=== PATIENT | female | born 1955 | race African-American/Black ===

== ENCOUNTER 2016-11-07 11:06 | Day surgery (SDC) | payer OTHER ==
[2016-11-03 14:31] LABS: BASOPHILS 0.5 %; BASOPHILS ABSOLUTE 0.02 10/3/uL (0.0-0.16); EOSINOPHILS 1.6 %; EOSINOPHILS ABSOLUTE 0.06 10/3/uL (0.0-0.53); HEMATOCRIT 38.4 % (36.0-48.0); HEMOGLOBIN 13.5 g/dL (12.0-16.0); IMMATURE GRANULOCYTES 0.3 %; IMMATURE GRANULOCYTES ABSOLUTE 0.01 10/3/uL (0.0-0.11); LYMPHOCYTES 38.5 %; LYMPHOCYTES ABSOLUTE 1.48 10/3/uL (0.67-4.30); MEAN CORPUS HGB CONC 35.2 g/dL (32.0-36.0); MEAN CORPUSCULAR HEMOGLOB 30.3 pg (26.0-34.0); MEAN PLATELET VOLUME 10.9 fL (9.2-13.0); MONOCYTES 7.3 %; MONOCYTES ABSOLUTE 0.28 10/3/uL (0.21-1.20); NEUTROPHILS 51.8 %; NEUTROPHILS ABSOLUTE 1.99 10/3/uL (2.02-8.40); PLATELET COUNT 176 10/3/uL (150-400); RBC DISTRIBUTION WIDTH 14.2 % (12.0-16.0); RED CELL COUNT 4.46 10/6/uL (4.0-5.6); WHITE BLOOD CELLS 3.8 10/3/uL (4.5-10.5)
[2016-11-03 14:37] LABS: MANUAL DIFF NO %; MEAN CORPUSCULAR VOLUME 86.1 fL (80-100)
[2016-11-03 14:44] LABS: BUN (BLOOD UREA NITROGEN) 7 MG/DL (6-23); CALCIUM, SERUM 9.2 MG/DL (8.5-10.4); CHLORIDE, SERUM 110 MMOL/L (96-112); CO2 (CARBON DIOXIDE) 27 MMOL/L (24-34); CREATININE 0.85 MG/DL (0.55-1.02); GFR AFRICAN AMERICAN 87 ML/MIN (>=60); GFR NON AFRICAN AMERICAN 75 ML/MIN (>=60); GLUCOSE, SERUM 100 MG/DL (60-99); POTASSIUM, SERUM 3.9 MMOL/L (3.5-5.3); SODIUM, SERUM 145 MMOL/L (135-148)
[2016-11-03 16:12] LABS: ASCORBIC ACID (UR NOT ORDER) NEG (NEG); BILIRUBIN, URINE NEGATIVE (NEG); KETONE, URINE NEGATIVE (NEG); LEUKOCYTE ESTERASE(NOT OR NEG (NEG); WBC (NOT ORDERED) (RFLEX) 4 (0-5)
--- NOTE | ~2016-11-07 | OP ---
Record Of Operation [facility] [address] [place]. [address] NAME: DARIO ANGLIN : 57 STATUS : [facility]#: [id number] AGE: 60 ADM/REG DATE : 11/07/16 MR#: [id number] REPORT SERV DATE: 11/08/16 DICTATED BY: MARCIE SCHUMACHER III DATE: 11/07/16 REPORT STATUS : Draft TRANSCRIBED BY: ELEANOR DATE: 11/07/16 DATE OF PROCEDURE: 11/07/2016 PREOPERATIVE DIAGNOSIS: Acquired deformity, second digit, left foot. POSTOPERATIVE DIAGNOSIS: Acquired deformity, second digit, left foot. PROCEDURE: Partial amputation of second digit at the proximal interphalangeal joint, left foot. SURGEON: Marcie Schumacher D.P.M. ANESTHESIA: General LMA. HEMOSTASIS: Left pneumatic ankle tourniquet at 250 mmHg for 11 minutes. ESTIMATED BLOOD LOSS: Minimal. MATERIALS: 3-0 Prolene. INJECTABLES: 10 mL of 0.5% Marcaine plain. SPECIMEN: Distal second digit, left foot. COMPLICATIONS: None. PROCEDURE NOTE: The patient was identified in the preoperative holding area and the appropriate limb for surgery was identified and clearly marked. The patient's vital signs were taken at this time and were noted to be stable. The patient was then brought into the operating room and placed on the operating room table in the supine position. The patient was then administered general anesthesia via LMA. A well-padded ankle tourniquet was then placed about the patient's left ankle. The left foot was then scrubbed, prepped, and draped in the usual sterile manner. An Esmarch bandage was then used to exsanguinate the patient's left foot and the pneumatic ankle tourniquet was then inflated to a pressure of 250 mmHg at this time. Attention was then directed to the distal aspect of the second digit where a deformity was present at the distal aspect of the digit. An incision was made over the dorsal aspect of the proximal interphalangeal joint with a flap being left plantarly. The digit was then disarticulated at the proximal interphalangeal joint. The wound was irrigated with normal saline, the plantar flap was then brought dorsally, and the skin edges were then reapproximated using 3-0 Prolene using simple interrupted suture techniques. Upon completion of the procedure, the patient was given a postoperative block using 10 mL of 0.5% Marcaine plain. The incision was dressed with Xeroform and covered with compressive bandage consisting of 4x4's and Christiane. The pneumatic ankle tourniquet was then deflated at Record Of Operation [place] [id number] [place]. [address] NAME: DARIO ANGLIN : 57 STATUS : [facility]#: [id number] AGE: 60 ADM/REG DATE : 11/07/16 MR#: [id number] REPORT SERV DATE: 11/08/16 DICTATED BY: MARCIE SCHUMACHER III DATE: 11/07/16 REPORT STATUS : Draft TRANSCRIBED BY: ELEANOR DATE: 11/07/16 this time after a duration of 11 minutes. There was a prompt hyperemic response noted to the digits of the left foot. An Hugo wrap was then applied to the left foot. The patient tolerated the procedure and anesthesia well. The patient was then transferred to the PACU with vital signs stable and vascular status intact to the digits of the left foot. Following a period of postoperative monitoring, the patient will be discharged home with written and oral postoperative instructions. The patient was discharged home when awake and alert and cleared by Anesthesia. PK Elida Schumacher III, D.P.M. / [id number] CC: Maria Fernanda Beal III, M.D.
[~2016-11-07 11:06] MED LIST: ATARAX50B PO; B12100T PO; COUMADIN7.5 MG PO; LANTUSCART SC; LIOR10 PO; LYRICA150 MG PO; MOBIC7.5 PO; NOVOLOG SC; PRILO PO; PROAIR HFA INH; ROXICODONE30 MG PO; VASOTEC10 PO; XANAX2 MG PO
[2016-11-07 12:31] LABS: INTERNATIONAL NORMAL RATI 1.2 UNITS (-); PROTIME (NOT ORD) 14.8 SEC (12.0-14.5)
== END 2016-11-07 20:44 | disposition home or self-care (01) ==
LOC: SDC 11:06
PROVIDERS: Podiatrist Foot & Ankle Surgery
PROC: 0Y6S0Z2 Detachment at Left 2nd Toe, Mid, Open Approach (ICD-10-PCS; principal; 2016-11-07 12:45)
DX: M20.002 Unspecified deformity of left finger(s) (principal); I10 Essential (primary) hypertension; J44.9 Chronic obstructive pulmonary disease, unspecified; J45.909 Unspecified asthma, uncomplicated; E11.8 Type 2 diabetes mellitus with unspecified complications; K21.9 Gastro-esophageal reflux disease without esophagitis; F17.210 Nicotine dependence, cigarettes, uncomplicated; M19.90 Unspecified osteoarthritis, unspecified site; M10.9 Gout, unspecified; Z98.890 Other specified postprocedural states; Z98.51 Tubal ligation status; Z86.718 Personal history of other venous thrombosis and embolism; Z88.2 Allergy status to sulfonamides; Z88.8 Allergy status to other drugs, medicaments and biological substances; Z79.4 Long term (current) use of insulin; Z79.891 Long term (current) use of opiate analgesic; Z79.01 Long term (current) use of anticoagulants; Z79.899 Other long term (current) drug therapy
CPT/HCPCS: 80048; 81001; 82962; 85025; 85610; 88305; 88311; 93005; 94640; A9270-GY; J0690; J1170; J2250; J2405; J3010

== ENCOUNTER 2017-01-02 11:35 | Day surgery (SDC) | payer OTHER ==
[2016-12-30 10:08] LABS: HEMOGLOBIN 13.5 g/dL (12.0-16.0)
[2016-12-30 10:24] LABS: BUN (BLOOD UREA NITROGEN) 10 MG/DL (6-23); CALCIUM, SERUM 8.9 MG/DL (8.5-10.4); CHLORIDE, SERUM 110 MMOL/L (96-112); CO2 (CARBON DIOXIDE) 26 MMOL/L (24-34); CREATININE 0.93 MG/DL (0.55-1.02); GFR AFRICAN AMERICAN 77 ML/MIN (>=60); GFR NON AFRICAN AMERICAN 67 ML/MIN (>=60); POTASSIUM, SERUM 3.8 MMOL/L (3.5-5.3); SODIUM, SERUM 145 MMOL/L (135-148)
[2016-12-30 10:25] LABS: GLUCOSE, SERUM 226 MG/DL (60-99)
--- NOTE | ~2017-01-02 | OP ---
Record Of Operation [facility] [address] [place]. 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 PROCEDURE: Extensor digitorum brevis tendon transfer with internal brace with 3 x 8 tenodesis screw x2. SURGEON: Marcie Schumacher D.P.M. ANESTHESIA: Sedation with local. HEMOSTASIS: Right pneumatic ankle tourniquet at 250 mmHg for 82 minutes. ESTIMATED BLOOD LOSS: Approximately 5 mL. MATERIALS: Arthrex LabralTape and tenodesis screws 3 x 8 times 2, 3-0 Vicryl, 4-0 Vicryl, 4- 0 Prolene. INJECTABLES: 20 mL of a one-to-one mix of 1% lidocaine plain and 0.5% Marcaine plain. SPECIMEN: None. COMPLICATIONS: None. PROCEDURE NOTE: The patient was identified in the preoperative holding area and the appropriate limb for surgery was identified and clearly marked. The patient's vital signs were taken at this time and noted to be stable. The patient was then brought into the operating room and placed on the operating room table in a supine position. A well-padded ankle tourniquet was then placed about the patient's right ankle. Following IV sedation, the patient was given a preoperative block around the second metatarsophalangeal joint of the right foot using a total of 20 mL of a one-to-one mix of 1% lidocaine plain and 0.5% Marcaine plain. The right foot was then scrubbed, prepped, and draped in the usual sterile manner. An Esmarch bandage was then used to exsanguinate the patient's right foot and the pneumatic ankle tourniquet was then inflated to a pressure of 250 mmHg at this time. Attention was then directed to the dorsal aspect of the second metatarsophalangeal joint where a linear longitudinal incision was made. Incision was then deepened to the subcutaneous tissues with care being taken to identify and retract all vital neural and vascular structures. Any bleeders were cauterized at this time. The extensor digitorum brevis to the second digit was then identified and was then freed from surrounding soft tissue. It was freed from the soft tissue approximately were it was then transected and Record Of Operation [place] [id number] [facility] [place]. [address] NAME: DARIO ANGLIN : 57 STATUS : [facility] PAT#: [id number] AGE: 61 ADM/REG DATE : 01/02/17 MR#: [id number] REPORT SERV DATE: 01/02/17 DICTATED BY: MARCIE SCHUMACHER III DATE: 01/02/17 REPORT STATUS : Draft TRANSCRIBED BY: ELEANOR DATE: 01/02/17 then brought distally. A capsulotomy was then performed over the dorsal aspect of the second metatarsophalangeal joint where the head of the second metatarsal was freed of its ligamentous and capsular attachments. McGlamry elevator was then used to free the plantar aspect of the joint. A drill hole was then made in the proximal phalanx as well as in the distal second metatarsal. The extensor digitorum brevis was then inserted into the proximal phalanx medially and with the LabralTape passed through laterally and held in place with 3 x 8 tenodesis screw. The tendon and LabralTape were then passed through the canal made in the distal second metatarsal and was then tightened down with good tension bringing the digit back into a more correct rectus position. A 3 x 8 tenodesis scissor was then used to hold the LabralTape and the extensor digitorum brevis into position. The ends of the LabralTape were resected. The wound was then irrigated with normal saline. The capsular and dorsal tendon were then reapproximated over the second metatarsophalangeal joint using 3-0 Vicryl. Subcutaneous tissues were reapproximated using 3-0 Vicryl. Skin was reapproximated using 4- 0 Prolene using a running interlocking suture technique. Upon completion of the procedure, the incision was dressed with Xeroform and covered with compressive bandage consisting of 4x4s and Kerlix. The pneumatic ankle tourniquet was then deflated at this time after duration of 82 minutes. There was a prompt hyperemic response noted to the digits of the right foot. An Hugo wrap was then applied to the right foot. The patient tolerated the procedure and anesthesia well. The patient was then transferred to the PACU with vital signs stable and vascular status intact to the digits of the right foot. Following a period of postoperative monitoring, the patient will be discharged home with written and oral postoperative instructions. JOI/ELEANOR Elida Schumacher III, D.P.M. / [id number] CC: Maria Fernanda Beal III, M.D.
[2017-01-02 12:08] LABS: INTERNATIONAL NORMAL RATI 1.3 UNITS (-); PROTIME (NOT ORD) 15.7 SEC (12.0-14.5)
== END 2017-01-02 17:18 | disposition home or self-care (01) ==
LOC: SDC 11:35
PROVIDERS: Podiatrist Foot & Ankle Surgery
PROC: 0LXV0ZZ Transfer Right Foot Tendon, Open Approach (ICD-10-PCS; principal; 2017-01-02 13:15)
DX: S93.144A Subluxation of metatarsophalangeal joint of right lesser toe(s), initial encounter (principal); I10 Essential (primary) hypertension; E11.9 Type 2 diabetes mellitus without complications; J44.9 Chronic obstructive pulmonary disease, unspecified; K21.9 Gastro-esophageal reflux disease without esophagitis; F17.210 Nicotine dependence, cigarettes, uncomplicated; E66.9 Obesity, unspecified; J45.909 Unspecified asthma, uncomplicated; F41.9 Anxiety disorder, unspecified; Z98.51 Tubal ligation status; Z88.2 Allergy status to sulfonamides; Z83.3 Family history of diabetes mellitus; Z88.6 Allergy status to analgesic agent; Z82.49 Family history of ischemic heart disease and other diseases of the circulatory system; Z68.31 Body mass index [BMI] 31.0-31.9, adult; Z79.4 Long term (current) use of insulin; Z79.899 Other long term (current) drug therapy; Z79.01 Long term (current) use of anticoagulants; Z79.82 Long term (current) use of aspirin; Z98.41 Cataract extraction status, right eye; Z98.42 Cataract extraction status, left eye; Z98.890 Other specified postprocedural states
CPT/HCPCS: 80048; 82962; 85014; 85018; 85610; 93005; C1713; C1769; J0690; J2250